=== PATIENT | male | born 2000 | race African-American/Black ===

== ENCOUNTER 2022-05-08 12:48 | Emergency (ER) | payer MEDICAID ==
[~2022-05-08] VITALS: Ht 177.8 cm; Wt 83.0 kg
[2022-05-08 12:59] VITALS: BP 123/64
== END 2022-05-08 18:02 | disposition home or self-care (01) ==
LOC: ER 12:48
DX: F15.10 Other stimulant abuse, uncomplicated (principal); Z59.00 Homelessness unspecified
CPT/HCPCS: 82962; 99283